=== PATIENT | male | born 1945 | race Caucasian/White ===

== ENCOUNTER 2021-03-26 04:37 | Emergency (ER) | payer MEDICARE, BC ==
[~2021-03-26] VITALS: Ht 177.8 cm; Wt 78.1 kg
--- NOTE | 2021-03-26 04:50 | NUR ---
Patient ambulated with steady gait. A/Ox4. Speech is clear, speaks in complete sentences. No focal neurological deficits noted. Denies any WETS, nausea or vomiting. Patient came for concerns that he is having a stroke. Patient c/o localized left forearm pain. Respiratory even and unlabored, no cough no sob. No cardiovascular distress noted. Patient in bed at lowest position, sr upx2, call light within reach. Patient connected to monitoring specialist, fall and safety precautions implemented per protocol.
--- NOTE | 2021-03-26 05:00 | NUR ---
ERMD at bedside for MSE
[2021-03-26] MEDS ORDERED: NITROGLYCERIN OINT 1 GM PACKET TP ONE ×2 (05:15→05:20)
[2021-03-26] MEDS ORDERED: LORAZEPAM 2 MG/1 ML VIAL IV ONE (05:15)
[2021-03-26] MEDS ORDERED: ASPIRIN 81 MG TAB.CHEW PO ONE (05:15)
[2021-03-26] MEDS ORDERED: METO-358 PO (05:16)
[2021-03-26] MEDS ORDERED: RIVA20TA PO (05:16)
[2021-03-26] MEDS ORDERED: ASPI-1420 PO (05:16)
[2021-03-26] MEDS ORDERED: LORAZEPAM 2 MG/1 ML VIAL ONE (05:19)
[2021-03-26] MEDS ORDERED: ASPIRIN 81 MG TAB.CHEW ONE (05:19)
[2021-03-26 05:26] LABS: CREATININE 1.1 mg/dL (0.6-1.3); POTASSIUM 3.8 mmol/L (3.5-5.1)
[2021-03-26 05:34] LABS: BASOPHILS # (AUTO) 0.1 K/uL (0.0-8.0); BASOPHILS % (AUTO) 0.8 % (0.0-2.0); EOSINOPHILS # (AUTO) 0.1 K/uL (0.0-0.7); EOSINOPHILS % (AUTO) 1.1 % (0.0-7.0); HEMATOCRIT 43.5 % (36.7-47.1); HEMOGLOBIN 14.4 g/dL (12.5-16.3); LYMPHOCYTES # (AUTO) 2.3 K/uL (20.0-40.0); LYMPHOCYTES % (AUTO) 31.7 % (20.5-51.5); MEAN CORPUSCULAR HEMOGLOBIN 32.3 uug (23.8-33.4); MEAN CORPUSCULAR HGB CONC 33 g/dL (32.5-36.3); MEAN CORPUSCULAR VOLUME 97.7 fL (73.0-96.2); MONOCYTES # (AUTO) 0.8 K/uL (2.0-10.0); MONOCYTES % (AUTO) 10.9 % (0.0-11.0); NEUTROPHILS % (AUTO) 55.5 % (38.5-71.5); PLATELET COUNT (AUTO) 275 K/uL (152-348); RED BLOOD CELL COUNT(AUTO) 4.46 MIL/uL (4.06-5.63); WHITE BLOOD COUNT (AUTO) 7.2 K/uL (3.6-10.2)
[2021-03-26 05:38] LABS: BILIRUBIN,DIRECT 0.1 mg/dL (0.0-0.2); BILIRUBIN,TOTAL 0.5 mg/dL (0.2-1.0); TOTAL PROTEIN, SERUM 6.9 g/dL (6.4-8.2)
--- NOTE | 2021-03-26 05:39 | NUR ---
Patient ambulated to the bathroom with steady gait. Denied any dizziness or lightheadedness, offered patient wheelchair but stated that he will be able to walk steadily. Patient was able to get up from bed transfer himself out and was able to ambulate without any assistance.
[2021-03-26] MEDS ORDERED: LORA0.5T48 PO (06:11)
--- NOTE | 2021-03-26 06:16 | NUR ---
Patient in bed at lowest position, sr upx2, call light within reach. Safety precautions implemented per protocol.
--- NOTE | 2021-03-26 06:52 | NUR ---
JUSTIN Barrientos, reassessing patient.
--- NOTE | 2021-03-26 07:05 | NUR ---
Report recieved on patient from Que Stewart RN for continuity of care.
--- NOTE | 2021-03-26 07:09 | NUR ---
Report given to CHRISTA Flores for continuity of care.
--- NOTE | 2021-03-26 08:18 | NUR ---
Pt. in bed in lowest position, call light within reach. Pt. alert, oriented, denies chest pain.
--- NOTE | 2021-03-26 08:23 | NUR ---
Removed nitroglycerin ointment. Patient denies chest pain. BP at the time of removal was 147/85.
[2021-03-26 08:30] VITALS: BP 147/68
--- NOTE | 2021-03-26 08:49 | NUR ---
Patient discharged to home in stable condition. Written and verbal after care instructions given. Patient verbalizes understanding of instructions. Stressed follow up or return to ER for worsening s/s. Pt. alert and oriented, walks with steady gait. No chest pain, no dizziness. Pt. instructed on rx, verbalized understanding not to drive or drink alcohol.
== END 2021-03-26 08:40 | disposition home or self-care (01) ==
LOC: ER 04:44
DX: M79.632 Pain in left forearm (principal); F41.8 Other specified anxiety disorders; I10 Essential (primary) hypertension; I48.0 Paroxysmal atrial fibrillation; Z79.01 Long term (current) use of anticoagulants; Z79.82 Long term (current) use of aspirin
CPT/HCPCS: 36415; 71045; 80048; 80076; 83880; 84484 ×2; 85025; 93005; 96374; 99285; J2060; 70030-TC; A4663